=== PATIENT | male | born 1980 | race Caucasian/White ===

== ENCOUNTER 2019-12-06 17:44 | Observation (INO) | payer SELFPAY ==
[~2019-12-06] VITALS: Ht 177.8 cm; Wt 97.1 kg
[2019-12-06] MEDS ORDERED: SODIUM CHLORIDE 0.9% 1000ML 1,000 ML IV STA (17:54)
[2019-12-06] MEDS ORDERED: ASPIRIN 81 MG CHEW TAB PO ONE (18:00)
--- NOTE | 2019-12-06 18:00 | Emergency Department Note ---
History of Present Illnes History of Present Illness Chief Complaint: General Medicine Complaints History of Present Illness This is a 39 year old male brought by EMS for possible seizure/syncopal event. Per significant other, she found patient unconscious in his patio chair in the extreme heat with unknown time of AMS. Patient was arousable and per SO, he was making confusing statements regarding giving a tour of his house to a friend baldo t was not physically present. Seen at bedside AO x 1 . Historian: Patient, Compliance Program Manager/EMS Arrival Mode: [facility] Treatment MULTIPLE SCLEROSIS NURSE: IV Clinical Lab Technologist Required: No Onset (how long ago): hour(s) Radiation: Reports non-radiation (1) Severity: moderate Onset quality: sudden Duration (how long): hour(s) (1) Timing of current episode: constant Progression: partially resolved Chronicity: new Context: Denies recent illness, Denies recent surgery, Denies recent immobilization, Denies recent travel, Denies trauma/injury, Denies new medications, Denies hx of DVT/PE, Denies non-compliance w/ medications, Denies other Relieving factors: none Exacerbating factors: none Associated symptoms: Reports weakness Past Medical/Family History Physician Review I have reviewed the patient's past medical and family history. Any updates have been documented here. Past Medical History Recent Fever: No Clinical Suspicion of Infectio: No New/Unexplained Change in Ment: No Past Medical History: None Past Surgical History: None Social History Smoking Cessation: Never Smoker Alcohol Use: None Any Illegal Drug Use: No Other Any Pre-Existing Lines (PICC,: No Review of Systems ROS Narrative Unable to obtain ROS: altered mental status Physical Exam Related Data Allergies: Coded Allergies: No Known Allergies (Unverified , 12/06/19) Triage Vital Signs Vital Signs Date Time Temp Pulse Resp B/P (MAP) Pulse Ox O2 Delivery O2 Flow Rate FiO2 12/06/19 17:52 98.2 93 19 129/78 100 Room Air Vital signs reviewed: Yes Physical Exam CONSTITUTIONAL Constitutional: Present well-developed, Present well-nourished HENT HENT: Present normocephalic, Present atraumatic, Present oropharynx clear/m oist, Present nose normal, Present other (multiple lingular injury) HENT L/R: Present left ext ear normal, Present right ext ear normal EYES Eyes: Reports PERRL, Reports conjunctivae normal NECK Neck: Present ROM normal PULMONARY Pulmonary: Present effort normal, Present breath sounds normal CARDIOVASCULAR Cardiovascular: Present regular rhythm, Present heart sounds normal, Present capillary refill normal, Present normal rate GASTROINTESTINAL Abdominal: Present soft, Present nontender, Present bowel sounds normal GENITOURINARY Genitourinary: Present exam deferred SKIN Skin: Present warm, Present dry MUSCULOSKELETAL Musculoskeletal: Present ROM normal NEUROLOGICAL Neurological: Present alert, Present oriented x 3, Present no gross motor or sensory deficits PSYCHOLOGICAL Psychological: Present mood/affect normal, Present judgement normal Results Laboratory Lab results reviewed: Yes Laboratory comments Laboratory Tests Test 12/06/19 17:48 White Blood Count 24.93 x10e3/uL (4.8-10.8) Red Blood Count 4.91 x10e6/uL (4.3-5.7) Hemoglobin 14.3 g/dL (14.0-18.0) Hematocrit 44.6 % (38.2-49.6) Mean Corpuscular Volume 90.8 fL (81-99) Mean Corpuscular Hemoglobin 29.1 pg (28-32) Mean Corpuscular Hemoglobin Concent 32.1 g/dL (31-35) Red Cell Distribution Width 13.9 % (11.7-14.4) Platelet Count 273 x10e3/uL (140-360) Neutrophils (%) (Auto) 89.4 % (38.7-80.0) Lymphocytes (%) (Auto) 3.2 % (18.0-39.1) Monocytes (%) (Auto) 5.1 % (4.4-11.3) Eosinophils (%) (Auto) 0.0 % (0.0-6.0) Basophils (%) (Auto) 0.4 % (0.0-1.0) Neutrophils # (Auto) 22.3 (2.1-6.9) Lymphocytes # (Auto) 0.8 (1.0-3.2) Monocytes # (Auto) 1.3 (0.2-0.8) Eosinophils # (Auto) 0.0 (0.0-0.4) Basophils # (Auto) 0.1 (0.0-0.1) Absolute Immature Granulocyte (auto 0.48 x10e3/uL (0-0.1) Sodium Level 143 mmol/L (136-145) Potassium Level 4.8 mmol/L (3.5-5.1) Chloride Level 105 mmol/L (98-107) Carbon Dioxide Level 21 mmol/L (22-29) Anion Gap 21.8 mmol/L (8-16) Blood Urea Nitrogen 14 mg/dL (7-26) Creatinine 2.14 mg/dL (0.72-1.25) Estimat Glomerular Filtration Rate 34 ML/MIN (60-) BUN/Creatinine Ratio 7 (6-25) Glucose Level 116 mg/dL (74-118) Calcium Level 9.6 mg/dL (8.4-10.2) Total Bilirubin 0.4 mg/dL (0.2-1.2) Aspartate Amino Transf (AST/SGOT) 32 IU/L (5-34) Alanine Aminotransferase (ALT/SGPT) 46 IU/L (0-55) Alkaline Phosphatase 50 IU/L (40-150) Creatine Kinase 324 IU/L (30-200) Creatine Kinase MB 9.40 ng/mL (0-5.0) Troponin I 0.167 ng/mL (0-0.300) B-Type Natriuretic Peptide < 10.0 pg/mL (0-100) Total Protein 7.6 g/dL (6.5-8.1) Albumin 4.4 g/dL (3.5-5.0) Globulin 3.2 g/dL (2.3-3.5) Albumin/Globulin Ratio 1.4 (0.8-2.0) Imaging Imaging results reviewed: Yes Impressions [place] [address] Patient Name: ODELL MONCADA MR #: [id number] : 1980 Age/Sex: 39/M Req #: [id number] Adm Physician: Ordered by: BILLY CAMARA DO Report #: [id number] Location: ER Room/Bed: Procedure: [id number] DX/CHEST SINGLE (PORTABLE) Exam Date: 12/06/19 Exam Time: 1854 REPORT STATUS: Signed EXAMINATION: CHEST SINGLE (PORTABLE) INDICATION: Syncopal episode. COMPARISON: None FINDINGS: TUBES and LINES: None. LUNGS: Normal lung volumes. Lungs are clear. No consolidations. PLEURA: No pleural effusion or pneumothorax. HEART AND MEDIASTINUM: The cardiomediastinal silhouette is unremarkable. BONES AND SOFT TISSUES: There is a left sixth rib fracture deformity of indeterminate age.. Soft tissues are unremarkable. UPPER ABDOMEN: No free air under the diaphragm. IMPRESSION: 1. Left sixth rib fracture deformity of indeterminate age. Correlate with point tenderness. 2. Clear lungs. Signed by: Joslyn Marr MD on 12/06/2019 8:07 PM Dictated By: JOSLYN MARR MD 06 Transcribed By: JOSE on 12/06/192006 COPY TO: BILLY CAMARA DO~ [place] [address] Patient Name: ODELL MONCADA MR #: [id number] : 1980 Age/Sex: 39/M Req #: [id number] Adm Physician: Ordered by: BILLY CAMARA DO Report #: [id number] Location: ER Room/Bed: Procedure: [id number] CT/CT BRAIN WO Exam Date: Exam Time: REPORT STATUS: Signed Exam: Head CT without contrast History: Syncope Comparison studies: None Technique: Axial images were obtained from the skull base to the vertex. Coronal and sagittal images reconstructed from the axial data. Dose modulation, iterative reconstruction, and/or weight based adjustment of the mA/kV was utilized to reduce the radiation dose to as low as reasonably achievable. Radiation dose: Total DLP: 921.4 mGy*cm. Estimated effective dose: DLP x 0.015 Intravenous contrast: None Findings: Scalp: No abnormalities. Bones: No fractures, blastic or lytic lesions. Brain sulci: Appropriate for age. Ventricles: Normal in size and configuration. No hydrocephalus. Extra-axial spaces: No masses, no fluid collection. Parenchyma: No abnormal densities. No masses, acute hemorrhage, acute or chronic vascular insults. Sellar/suprasellar region: No abnormalities. Craniocervical junction: Patent foramen magnum. No Chiari one malformation. Included paranasal sinuses: Mild nonspecific mucosal thickening in the partially imaged maxillary sinuses. Remaining included sinuses are clear. Incidental findings: Nonspecific punctate calcifications along the posterior margins of the globes bilaterally. IMPRESSION: No acute intracranial abnormalities. Signed by: Dr. Marcie Bustamante M.D. on 12/06/2019 7:15 PM Dictated By: MARCIE BUSTAMANTE MD 14 Transcribed By: JOSE on 12/06/191914 COPY TO: BILLY CAMARA DO~ Procedures 12 Lead ECG Interpretation ECG Interpretation : ECG: ECG 1 Clinical Lab Technologist: Interpreted by ED physician Date: Dec 06, 2019 Time: 18:01 Prior ECG tracings: reviewed Rhythm: sinus rhythm Rate: normal BPM: 95 QRS axis: normal ST segments normal: Yes T waves normal: Yes Pacin% capture Clinical Impression: normal ECG Assessment & Plan Medical Decision Making MDM 39 yom evaluated for syncope. Diff Dx : PE, ACS, PTX, dehydration, shock, heat stroke, seizure, syncope, CVA Assessment & Plan Final Impression: (1) Seizure (2) Rhabdomyolysis Depart Disposition: ADMITTED Last Vital Signs Date Time Temp Pulse Resp B/P (MAP) Pulse Ox O2 Delivery O2 Flow Rate FiO2 12/06/19 17:52 98.2 93 19 129/78 100 Room Air Home Meds Reported Medications Lisinopril (LISINOPRIL) 10 Mg Tablet, 10 MG PO DAILY, #30 TAB 12/07/19 Medications in the ED Sodium Chloride 1,000 ml @ 0 mls/hr Q0M STAT IV ; Start 12/06/19 at 17:54; Stop 12/06/19 at 17:55 Aspirin 81 mg PRN ONCE PO ; Start 12/06/19 at 18:00; Stop 12/06/19 at 18:01; Status BILLY FERNANDES DO Dec 06, 2019 18:00
[2019-12-06 18:04] LABS: BASOPHILS # (AUTO) 0.1 (0.0-0.1); BASOPHILS % 0.4 % (0.0-1.0); HEMATOCRIT 44.6 % (38.2-49.6); HEMOGLOBIN 14.3 g/dL (14.0-18.0); LYMPHOCYTES # (AUTO) 0.8 (1.0-3.2); LYMPHOCYTES % 3.2 % (18.0-39.1); MEAN CORPUSCULAR HEMOGLOBIN 29.1 pg (28-32); MEAN CORPUSCULAR HGB CONC 32.1 g/dL (31-35); MEAN CORPUSCULAR VOLUME 90.8 fL (81-99); MONOCYTES # (AUTO) 1.3 (0.2-0.8); MONOCYTES % 5.1 % (4.4-11.3); NEUTROPHILS # (AUTO) 22.3 (2.1-6.9); NEUTROPHILS % 89.4 % (38.7-80.0); PLATELET COUNT 273 x10e3/uL (140-360); RED BLOOD COUNT 4.91 x10e6/uL (4.3-5.7); RED CELL DISTRIBUTION WIDTH 13.9 % (11.7-14.4)
[2019-12-06 18:18] LABS: ALBUMIN 4.4 g/dL (3.5-5.0); ALBUMIN/GLOBULIN RATIO 1.4 (0.8-2.0); ANION GAP 21.8 mmol/L (8-16); CALCIUM 9.6 mg/dL (8.4-10.2); CREATININE, SERUM 2.14 mg/dL (0.72-1.25); POTASSIUM 4.8 mmol/L (3.5-5.1)
--- NOTE | 2019-12-06 18:20 | NUR ---
[place] requested from pharmacy STAT
[2019-12-06 18:25] LABS: CREATINE KINASE MB 9.4 ng/mL (0-5.0)
[2019-12-06] MEDS: LEVETIRACETAM 500MG/5ML VIAL 500 MG in SODIUM CHLORIDE 0.9% 100 ML 100 ML IV SCH (18:28)
[2019-12-06] MEDS ORDERED: LEVETIRACETAM 500 MG/5 ML VIAL IV ONE (18:32)
[2019-12-06] MEDS ORDERED: SODIUM CHLORIDE 0.9% 50ML 50 ML ONE (18:33)
--- NOTE | 2019-12-06 19:19 | Diagnostic Imaging Report ---
Exam: Head CT without contrast History: Syncope Comparison studies: None Technique: Axial images were obtained from the skull base to the vertex. Coronal and sagittal images reconstructed from the axial data. Dose modulation, iterative reconstruction, and/or weight based adjustment of the mA/kV was utilized to reduce the radiation dose to as low as reasonably achievable. Radiation dose: Total DLP: 921.4 mGy*cm. Estimated effective dose: DLP x 0.015 Intravenous contrast: None Findings: Scalp: No abnormalities. Bones: No fractures, blastic or lytic lesions. Brain sulci: Appropriate for age. Ventricles: Normal in size and configuration. No hydrocephalus. Extra-axial spaces: No masses, no fluid collection. Parenchyma: No abnormal densities. No masses, acute hemorrhage, acute or chronic vascular insults. Sellar/suprasellar region: No abnormalities. Craniocervical junction: Patent foramen magnum. No Chiari one malformation. Included paranasal sinuses: Mild nonspecific mucosal thickening in the partially imaged maxillary sinuses. Remaining included sinuses are clear. Incidental findings: Nonspecific punctate calcifications along the posterior margins of the globes bilaterally. IMPRESSION: No acute intracranial abnormalities. Signed by: Dr. Uriel Bustamante M.D. on 12/06/2019 7:15 PM
--- NOTE | 2019-12-06 20:11 | Diagnostic Imaging Report ---
EXAMINATION: CHEST SINGLE (PORTABLE) INDICATION: Syncopal episode. COMPARISON: None FINDINGS: TUBES and LINES: None. LUNGS: Normal lung volumes. Lungs are clear. No consolidations. PLEURA: No pleural effusion or pneumothorax. HEART AND MEDIASTINUM: The cardiomediastinal silhouette is unremarkable. BONES AND SOFT TISSUES: There is a left sixth rib fracture deformity of indeterminate age.. Soft tissues are unremarkable. UPPER ABDOMEN: No free air under the diaphragm. IMPRESSION: 1. Left sixth rib fracture deformity of indeterminate age. Correlate with point tenderness. 2. Clear lungs. Signed by: Bill Contreras MD on 12/06/2019 8:07 PM
--- OUTSIDE RECORDS SUMMARY | 2019-12-06 21:08 | XMS REPORT | Continuity of Care Document ---
Author Author [facility] Organization [facility] Address [address] [place] [address] Dr. Howell [address] [place] [id number] Phone Unavailable Care Team Providers Care Physiognomist Name Role Phone BILLY CAMARA Unavailable Problems This patient has no known problems. Allergies, Adverse Reactions, Alerts This patient has no known allergies or adverse reactions. Medications This patient has no known medications. Procedures This patient has no known procedures. Results Test Description Test Time Test Comments Results Result Comments Source CHEST SINGLE (PORTABLE) 2019-12-06 20:05:[address] [address] Patient Name: ODELL MONCADA MR #: [id number] : 1980 Age/Sex: 39/M Req #: [id number] Adm Physician: Ordered by: BILLY CAMARA DO Report #: [id number] Location: ER Room/Bed: Procedure: [id number] DX/CHEST SINGLE (PORTABLE) Exam Date: 12/06/19 Exam Time: 1855 REPORT STATUS: Signed EXAMINATION: CHEST SINGLE (PORTABLE) INDICATION: Syncopal episode. COMPARISON: None FINDINGS: TUBES and LINES: None. LUNGS: Normal lung volumes. Lungs are clear. No consolidations. PLEURA: No pleural effusion or pne umothorax. HEART AND MEDIASTINUM: The cardiomediastinal silhouette is unremarkable. BONES AND SOFT TISSUES: There is a left sixth rib fracture deformity of indeterminate age.. Soft tissues are unremarkable. UPPER ABDOMEN: No free air under the diaphragm. IMPRESSION: 1. Left sixth rib fracture deformity of indeterminate age. Correlate with point tenderness. 2. Clear lungs. Signed by: Joslyn Marr MD on 12/06/2019 8:07 PM Dictated By: JOSLYN MARR MD 06 Transcribed By: JOSE on 12/06/192006 COPY TO: BILLY CAMARA DO CT BRAIN WO 2019-12-06 19:11:00 [place] [address] Patient Name: ODELL MONCADA MR #: [id number] : 1980 Age/Sex: 39/M Req #: [id number] Adm Physician: Ordered by: BILLY CAMARA DO Report #: [id number] Location: ER Room/Bed: Procedure: [id number] CT/CT BRAIN WO Exam Date: Exam Time: REPORT STATUS: Signed Exam: Head CT without contrast History: Syncope Comparison studies: None Technique: Axial images were obtained from the skull base to the vertex. Coronal and sagittal images reconstructed from the axial data. Dose modulation, iterative reconstruction, and/or weight based adjustment of the mA/kV was utilized to reduce the radiation dose to as low as reasonably achievable. Radiation dose: Total DLP: 921.4 mGy*cm. Estimated effective dose: DLP x 0.015 Intravenous contrast: None Findings: Scalp: No abnormalities. Bones: No fractures, blastic or lytic lesions. Brain sulci: Appropriate for age. Ventricles: Normal in size and configuration. No hydrocephalus. Extra-axial spaces: No masses, no fluid collection. Parenchyma: No abnormal densities. No masses, acute hemorrhage, acute or chronic vascular insults. Sellar/suprasellar region: No abnormalities. Craniocervical junction: Patent foramen magnum. No Chiari one malformation. Included paranasal sinuses: Mild nonspecific mucosal thickening in the partially imaged maxillary sinuses. Remaining included sinuses are clear. Incidental findings: Nonspecific punctate calcifications along the posterior margins of the globes bilaterally. IMPRESSION: No acute intracranial abnormalities. Signed by: Dr. Marcie Bustamante M.D. on 12/06/2019 7:15 PM Dictated By: MARCIE BUSTAMANTE MD 14 Transcribed By: JOSE on 12/06/191914 COPY TO: BILLY CAMARA DO
[2019-12-06 23:42] LABS: AMPHETAMINES SCREEN,URINE NEGATIVE (NEGATIVE); BENZODIAZEPINES SCREEN,URINE NEGATIVE (NEGATIVE); PHENCYCLIDINE SCREEN,URINE NEGATIVE (NEGATIVE)
--- NOTE | 2019-12-06 23:45 | NUR ---
Received pt from ER via stretcher. Pt alert, awake, and oriented x 3. Vitals stable. Denies any pain or discomfort. Oriented to bed and call light. Belongings and call light within reach. Will continue to monitor pt.
[2019-12-06 23:50] VITALS: BP 114/74
[2019-12-07] VITALS (9 sets, daily range): BP systolic 114–163; BP diastolic 74–98
[2019-12-07] MEDS: SODIUM CHLORIDE 0.9% 1000ML 1,000 ML IV SCH ×4 (00:07→21:02)
[2019-12-07 04:54] LABS: BASOPHILS % 0.2 % (0.0-1.0); EOSINOPHILS % 0.1 % (0.0-6.0); HEMATOCRIT 38.3 % (38.2-49.6); HEMOGLOBIN 12.4 g/dL (14.0-18.0); LYMPHOCYTES # (AUTO) 1.6 (1.0-3.2); LYMPHOCYTES % 10.5 % (18.0-39.1); MEAN CORPUSCULAR HEMOGLOBIN 29.8 pg (28-32); MEAN CORPUSCULAR HGB CONC 32.4 g/dL (31-35); MEAN CORPUSCULAR VOLUME 92.1 fL (81-99); MONOCYTES # (AUTO) 1.2 (0.2-0.8); NEUTROPHILS # (AUTO) 12.2 (2.1-6.9); NEUTROPHILS % 80.5 % (38.7-80.0); PLATELET COUNT 213 x10e3/uL (140-360); RED BLOOD COUNT 4.16 x10e6/uL (4.3-5.7); RED CELL DISTRIBUTION WIDTH 14.1 % (11.7-14.4)
[2019-12-07 05:17] LABS: CREATINE KINASE MB 6.6 ng/mL (0-5.0)
[2019-12-07 06:02] LABS: ALANINE AMINOTRANSFERASE 37 IU/L (0-55); ALBUMIN 3.7 g/dL (3.5-5.0); ALBUMIN/GLOBULIN RATIO 1.3 (0.8-2.0); ALKALINE PHOSPHATASE 45 IU/L (40-150); BLOOD UREA NITROGEN 17 mg/dL (7-26); BUN/CREATININE RATIO 15 (6-25); CALCIUM 8.8 mg/dL (8.4-10.2); CARBON DIOXIDE 21 mmol/L (22-29); CHLORIDE 108 mmol/L (98-107); CREATININE, SERUM 1.14 mg/dL (0.72-1.25); EST GLOMERULAR FILTRATION RATE > 60 ML/MIN (60-); GLUCOSE 100 mg/dL (74-118); SODIUM 142 mmol/L (136-145)
[2019-12-07] MEDS ORDERED: LISINOPRIL10 MG PO (06:08)
[2019-12-07] MEDS: LEVETIRACETAM 500MG/5ML VIAL 500 MG in SODIUM CHLORIDE 0.9% 100 ML 100 ML IV SCH (06:32)
[2019-12-07 11:30] LABS: CREATINE KINASE MB 5.9 ng/mL (0-5.0)
[2019-12-07 13:24] LABS: BILIRUBIN,URINE NEGATIVE (NEGATIVE); CLARITY,URINE CLEAR (CLEAR); COLOR,URINE YELLOW (YELLOW); KETONES,URINE NEGATIVE (NEGATIVE); LEUKOCYTE ESTERASE ,URINE NEGATIVE (NEGATIVE); NITRITE,URINE NEGATIVE (NEGATIVE); PROTEIN,URINE DIPSTICK NEGATIVE (NEGATIVE); URINE UROBILINOGEN 0.2 mg/dL (0.2 - 1)
[2019-12-07 13:33] LABS: EPITHELIAL CELLS,URINE FEW /LPF; MUCUS,URINE FEW (RARE); WBC,URINE (MAN) 0-5 /HPF (0-5)
[2019-12-07 13:44] LABS: CREATININE,URINE RANDOM 59.46 mg/dL (63-166); SODIUM,URINE 180 mmol/L
--- NOTE | 2019-12-07 14:05 | Consultation ---
DATE OF CONSULTATION: 12/07/2019 Neurology Consultation REASON FOR CONSULTATION: Seizure. HISTORY OF PRESENT ILLNESS: The patient was at home on , not drinking alcohol and then wakes up in an ambulance on the way to the hospital. He reported that he had a generalized tonic-clonic event and was brought to the emergency room by the ambulance, they finally called the EMS. The patient then had a seizure before. Denies head trauma. Denies alcohol. Denies tobacco. Denies family history of epilepsy. Denies previous similar events in the past of compression. Currently, he is feeling well. He does feel generally sore and is dysarthric from biting his tongue, but otherwise no acute complaints. No chest pain. No nausea, vomiting, visual changes, focal neurological deficits, etc. PHYSICAL EXAMINATION: VITAL SIGNS: He is afebrile. His blood pressure is /72. His heart rate is 87 and regular. HEENT: Extraocular muscles intact. Face symmetric and tongue is swollen. Speech is dysarthric. There is no nuchal rigidity. There are no bruises, lacerations or contusions on the head, knees, arms, or elbows. CARDIOVASCULAR: Regular rate and rhythm. PULMONARY: Clear to ascultation. ABDOMEN: Soft and nontender. EXTREMITIES: There is no ataxia on exam. Strength is 5/5. Reflexes are 2/4. Toes are downgoing bilaterally. ASSESSMENT AND PLAN: This man had a first-time seizure with a generalized tonic-clonic event of unclear etiology. Lab workup is in progress. An EEG has been ordered. The patient was started on Keppra IV and I am going to transitioned that p.o. I discussed driving restrictions with the patient, swimming restrictions with the patient and the need to get a followup with Neurology before he can be cleared for driving. ALEJANDRO CHANEY MD RR/MODL /[id number]
--- NOTE | 2019-12-07 16:50 | Consultation ---
DATE OF CONSULTATION: 12/07/2019 History predominantly from the patient. HISTORY OF PRESENT ILLNESS: This is a 39-year-old gentleman, who apparently was found by his girlfriend. Apparently has had a seizure. This is his first episode of seizure. He does not remember what happened before that. He does not remember what he was doing before he had a seizure episode. He did bite his tongue. Tongue is fairly swollen. He has difficulty eating and chewing. He does smoke marijuana, but sometimes he picks it up from smoke shop and sometimes elsewhere, but denies any other substance abuse. LABORATORY DATA: Show elevated white count 24,000 yesterday and then today it is 15, with initial hemoglobin 14.3, now 12.4. Has a platelet count of 213. Chemistry, sodium 142, potassium 4, bicarb 21, creatinine was 2.14 with initial bicarbonate of 21. His CK was 324. No CK done today. Blood sugars are in the 100s. Liver function enzymes are normal. Total protein 6.5 with albumin 3.7. ALLERGIES: HE DENIES ANY DRUG ALLERGIES. Has history of hypertension, takes lisinopril. SOCIAL HISTORY: The patient does not work. CURRENT MEDICATIONS: On normal saline at 125 mL an hour. Did receive an aspirin bolus. Also on Keppra 500 mg b.i.d. as well as aspirin. FAMILY HISTORY: Significant for hypertension. PHYSICAL EXAMINATION: GENERAL: The patient otherwise awake, alert, lying supine, has obviously swollen tongue, which appears fairly sore. VITAL SIGNS: Blood pressure 138/90, pulse rate 67, afebrile, oxygen saturation 99%. HEAD AND NECK: Cornea clear. Oral mucosa limited exam. Tongue fairly swollen. Neck veins flat. LUNGS: Relatively clear. HEART: S1 and S2 audible. ABDOMEN: Soft and nontender. EXTREMITIES: No apparent visceromegaly and lower extremity examination shows no edema. CT brain negative. Urine myoglobin was canceled. Urinalysis not done. I am going to get one done. Had a urine drug screen, apparently negative for opioids, methadone, barbiturates, phencyclidine, nifedipine, methamphetamine, benzos, cocaine, and cannabinoids. Coronavirus test is pending. IMPRESSION AND PLAN: Acute kidney injury in a patient with new onset seizures of unclear etiology. Neurology on consult. The patient denies any taking any illicit medication. Does not have diabetes. No blood sugar issues. We will obtain CK today. Urine chemistries, urinalysis. Continue with IV normal saline. Consult Dr. Boyce of ENT. Please see orders. MD HARJIT Wallace/MODL /[id number]
[2019-12-07] MEDS: LEVETIRACETAM 500 MG TAB PO SCH (17:19)
--- NOTE | 2019-12-07 18:20 | Diagnostic Imaging Report ---
EXAM: Renal Ultrasound INDICATION: Rhabdomyolysis and seizure. COMPARISON: None TECHNIQUE: Transverse and longitudinal images of the kidneys and bladder were obtained. FINDINGS: Right Kidney: Size: 10.7 x 4.8 x 5.6 cm Echogenicity: Normal Parenchymal thickness: Normal Collecting system: No hydronephrosis Stones: None Cyst/Mass: None Left Kidney: Size: 12.8 x 5.5 x 5.6 cm Echogenicity: Normal Parenchymal thickness: Normal Collecting system: No hydronephrosis Stones: None Cyst/Mass: None Bladder: The urinary bladder is unremarkable with prevoid volume of 317.55. Urinary jets were not visualized. The prostate was unremarkable. IMPRESSION: Normal renal ultrasound exam. Signed by: Bill Contreras MD on 12/07/2019 6:17 PM
--- NOTE | 2019-12-07 20:06 | Consultation ---
DATE OF CONSULTATION: 12/07/2019 Cardiology consultation REQUESTING PHYSICIAN: Indira Bangura MD. REASON FOR CONSULTATION: Syncope. HISTORY OF PRESENT ILLNESS: This is a 39-year-old male with history of hypertension and hyperlipidemia, who presents with complaints of syncope. The patient reports he had been sitting on the patio when he lost consciousness. He denies any preceding chest pain, shortness of breath, palpitations, or lightheadedness. He denies any bowel or bladder incontinence, but does report biting his tongue. The initial event was unwitnessed, but he was found to be unconscious in the chair by his fiancee. He denies any edema, orthopnea, or PND. REVIEW OF SYSTEMS: Negative except as per HPI. PAST MEDICAL HISTORY: 1. Hypertension. 2. Hyperlipidemia. PAST SURGICAL HISTORY: Denies. ALLERGIES: PLEASE SEE EMR. MEDICATIONS: Please see medication list. SOCIAL HISTORY: No tobacco, alcohol, or illicit drugs. FAMILY HISTORY: Denies. PHYSICAL EXAMINATION: VITAL SIGNS: Temperature 98.9 degrees, pulse 67, respiratory rate 18, blood pressure 138/90, and oxygen saturation 99% on room air. GENERAL: A well-developed, well-nourished man, in no acute distress. HEENT: Normocephalic, atraumatic. Pupils are equal. No scleral icterus. NECK: Supple. No thyromegaly. No cervical lymphadenopathy. No carotid bruits. LUNGS: Clear to auscultation bilaterally. No wheezes or crackles. CARDIOVASCULAR: Normal rate. Regular rhythm. No murmur. Normal S1, S2. ABDOMEN: Soft, nontender. EXTREMITIES: No edema. NEUROLOGIC: Nonfocal exam. LABORATORY DATA: WBC 15.07, hemoglobin 12.4, hematocrit 38.3, and platelets 213. Sodium 142, potassium 4, chloride 108, CO2 of 21, BUN 17, and creatinine 1.14. CK 434, troponin 0.038. TSH 0.265. IMAGING DATA: EKG, normal sinus rhythm, incomplete right bundle-branch block, septal infarct age undetermined. IMPRESSION: 1. Syncope. 2. Hypertension. 3. Hyperlipidemia. RECOMMENDATIONS: No evidence of myocardial infarction on serial cardiac biomarkers. Monitor the patient on telemetry for arrhythmia. Obtain echocardiogram and carotid Doppler. Further recommendations pending test results. Neurology has been consulted to evaluate for seizure. Thank you for this consult. We will continue to follow. MD JULISA Harkins/TABITHA /[id number]
[2019-12-07] MEDS: DEXAMETHASONE SOD PHOS 10 MG/1 ML VIAL IV SCH (21:02)
--- NOTE | 2019-12-08 01:42 | Consultation ---
DATE OF CONSULTATION: 12/07/2019 HISTORY OF PRESENT ILLNESS: I was kindly asked to see this 39-year-old man, known to me from outpatient evaluation and treatment for evaluation of "swollen tongue." The patient suffered a swollen tongue after having a seizure. He is having difficulty with speech and difficulty with swallowing. His history of present illness, past medical history, and past surgical history were all reviewed in detail in the chart. PHYSICAL EXAMINATION: HEENT: The tongue is traumatized in the lateral aspect and anterior aspect with significant edema. There is no impending upper airway obstruction. There are no lacerations noted, just generalized hematoma of the anterior tongue. There is no palpable cervical adenopathy. ASSESSMENT: Tongue trauma without laceration. PLAN: 1. Peridex 5 mL q.6 hours while awake for 3 days. 2. Decadron 10 mg IV push for 2-3 q.8 hours for two doses. Lico Greene MD LRAdan/MODL /[id number]
[2019-12-08] MEDS: SODIUM CHLORIDE 0.9% 1000ML 1,000 ML IV SCH (04:49)
[2019-12-08] MEDS: CHLORHEXIDINE GLUCONATE 0.12% SOLN 473 ML BTL MT SCH ×2 (05:08→11:49)
[2019-12-08] MEDS: DEXAMETHASONE SOD PHOS 10 MG/1 ML VIAL IV SCH (05:08)
[2019-12-08 05:13] VITALS: BP 141/99
[2019-12-08 06:58] LABS: ALANINE AMINOTRANSFERASE 41 IU/L (0-55); ALBUMIN 4.5 g/dL (3.5-5.0); ALBUMIN/GLOBULIN RATIO 1.2 (0.8-2.0); ALKALINE PHOSPHATASE 62 IU/L (40-150); ANION GAP 19.4 mmol/L (8-16); BLOOD UREA NITROGEN 20 mg/dL (7-26); BUN/CREATININE RATIO 21 (6-25); CALCIUM 10.2 mg/dL (8.4-10.2); CARBON DIOXIDE 21 mmol/L (22-29); CHLORIDE 104 mmol/L (98-107); CREATINE KINASE 346 IU/L (30-200); CREATININE, SERUM 0.97 mg/dL (0.72-1.25); EST GLOMERULAR FILTRATION RATE > 60 ML/MIN (60-); GLUCOSE 145 mg/dL (74-118); POTASSIUM 4.4 mmol/L (3.5-5.1); SODIUM 140 mmol/L (136-145)
[2019-12-08 07:32] LABS: HEMATOCRIT 44.5 % (38.2-49.6); HEMOGLOBIN 14.3 g/dL (14.0-18.0); MEAN CORPUSCULAR HEMOGLOBIN 29.1 pg (28-32); MEAN CORPUSCULAR HGB CONC 32.1 g/dL (31-35); MEAN CORPUSCULAR VOLUME 90.4 fL (81-99); PLATELET COUNT 266 x10e3/uL (140-360); RED BLOOD COUNT 4.92 x10e6/uL (4.3-5.7); RED CELL DISTRIBUTION WIDTH 13.6 % (11.7-14.4)
[2019-12-08 07:43] VITALS: BP 140/97
[2019-12-08 08:21] VITALS: BP 140/97
[2019-12-08] MEDS: LEVETIRACETAM 500 MG TAB PO SCH (09:07)
--- NOTE | 2019-12-08 09:46 | NUR ---
GAVE PACKET OF INFORMATION WITH [facility] [employer] FOR ASSISTANCE WITH LOW TO NO INCOME TO PATIENT. RESOURCES THAT PATIENT MAY BE ABLE TO FOLLOW UP UPON DISCHARGE. PT EDUCATED ON EACH RESOURCE AND UNDERSTANDING HOW TO FOLLOW UP TO SEE IF QUALIFIED FOR EACH RESOURCE.
--- NOTE | 2019-12-08 09:50 | Discharge Summary ---
HISTORY: Mr. Lopez is a 39-year-old man with history of hypertension, hyperlipidemia, came to the emergency room after having a syncopal episode. Apparently, he had a seizure. He bit his tongue. He was seen by ENT, who ordered some steroids. Seen by neurologist, EEG is pending. Also seen by corner former, who ordered an echocardiogram and a carotid Doppler, that came back negative. PHYSICAL EXAMINATION: GENERAL: He is awake and alert. He wants to go home. VITAL SIGNS: Temperature is 98.7, blood pressure 140/97. HEART: Regular rate. LUNGS: Clear to auscultation. ABDOMEN: Soft. LABORATORY DATA: On the blood work; white count 11.79, hemoglobin 14.3, hematocrit 44.5. Potassium 4.4, creatinine is 0.97, glucose 145. CPK is going down. Serology with coronavirus still pending. DISCHARGE DIAGNOSES: 1. Syncopal episode. 2. Probably seizure disorder. 3. Hypertension. 4. Hyperlipidemia. PLAN: At the present time, if the patient gets cleared by neurologist or corner former, he can be discharged home. Renal function is back to normal. CPK is going down. As per neurologist, he needs to be on Keppra 500 mg twice a day. Please see home medication reconciliation list. All this was discussed with the patient. All questions were answered to satisfaction. He needs to follow up with his PCP in 1 week and like I said before, discharge him home if it is okay with consultants. MD KRISTINE Kline/TABITHA /[id number]
--- NOTE | 2019-12-08 10:00 | Discharge Summary ---
HISTORY: Mr. Lopez is a 39-year-old man with history of hypertension and hyperlipidemia, who apparently was outside. He had a syncopal episode. Nobody was apparently there, so he does not know what happened. He bit his tongue and has been seen both by ENT for that, who ordered some Decadron. He was also seen by neurologist. We are awaiting for EEG results. He is on Keppra 500 mg twice a day. He was also seen by hoop punch and coiler operator helper, serial cardiac enzymes were negative, so we are awaiting for echocardiogram and carotid Doppler results. PHYSICAL EXAMINATION: GENERAL: Today, he is awake and alert. He wants to go home. VITAL SIGNS: Temperature is 98.7, blood pressure 140/97. HEART: Regular rate. LUNGS: Clear to auscultation. ABDOMEN: Soft. LABORATORY DATA: On the blood work; white count 11.76, hemoglobin 14.3, hematocrit 44.5. Potassium 4.4, creatinine is 0.97. CK went down to 346. COVID test is still pending. Echocardiogram has an ejection fraction of 65%. Trace TR. No significant stenosis of the carotid arteries. DISCHARGE DIAGNOSES: 1. Syncopal episode, probably due to seizure. 2. Hypertension. 3. Hyperlipidemia. PLAN: At the present time is to discharge the patient home if okay with hoop punch and coiler operator helper and neurologist. Kidney function is back to normal. CPK is going down. So, if he gets cleared by neurologist and hoop punch and coiler operator helper, he is going to be able to go home and follow up as an outpatient. As per the neurologist, he needs to be on Keppra 500 mg twice a day. All this was discussed in extension with the patient. All questions were answered to satisfaction. Please see home medication reconciliation list. MD KRISTINE Kline/TABITHA /[id number]
--- NOTE | 2019-12-08 11:20 | Progress Note ---
DATE: 12/08/2019 Cardiology Progress Note SUBJECTIVE: The patient denies chest pain or shortness of breath. OBJECTIVE: VITAL SIGNS: Temperature 98.7 degrees, pulse 80, respiratory rate 18, blood pressure 140/97, and oxygen saturation 99% on room air. GENERAL: Awake, alert, no acute distress. LUNGS: Clear to auscultation bilaterally. No wheezes or crackles. CARDIOVASCULAR: Normal rate. Regular rhythm. No murmur. Normal S1, S2. ABDOMEN: Soft, nontender. EXTREMITIES: No edema. CARDIAC MEDICATIONS: None. LABORATORY DATA: WBC 11.79, hemoglobin 14.3, hematocrit 44.5, and platelets 266. Sodium 140, potassium 4.4, chloride 104, CO2 of 21, BUN 20, and creatinine 0.97. TELEMETRY: Telemetry was personally reviewed and interpreted, revealing normal sinus rhythm. IMPRESSION: 1. Seizure. 2. Hypertension. 3. Hyperlipidemia. RECOMMENDATIONS: No evidence of myocardial infarction on serial cardiac biomarkers. No evidence of arrhythmia on telemetry to explain his presentation which was more consistent with seizure rather than syncope. Carotid Doppler did not reveal hemodynamically significant stenosis. We will review echocardiogram images once available. Management of seizure per Neurology. Please have the patient follow up in the office in 2 weeks. Thank you for this consult. We will continue to follow. Ina Benjamin MD ABS/MODL /[id number]
[2019-12-08 11:38] VITALS: BP 151/101
--- NOTE | 2019-12-08 13:58 | NUR ---
eeg 30 min study awake and asleep [id number] 10/20 international electrode placement system read in bipolar and transverse montage EEG data theta -alpha rythm prominance 5-8 hz high amplitude and sinusoidal - V- vaves and sleep spindles Intermittent slower waves EEG report: abnormal I background slow patient shows prominent and early sleep, as well as a diffuse slow background suggesting mild encephalopathy. no evidence of seizure captured but repeat eeg warranted as outpt t
--- NOTE | 2019-12-08 13:59 | NUR ---
no acute complaints no recurrence 98.7 92 18 140/97 aox3 eomi, perrl mild dysarthria rrr cta abd soft no myotonia motor 5/5 reflexes 1/4 sensory grossly intact no ataxia or tremors A/P syncopal convulsion vs sz initial EEG normal, however given dramatic nature of this event initaiting aed is warranted x 3 mo and driving restrcitions until cleared discussed w/ pt ok to dc
[2019-12-08] MEDS ORDERED: KEPPRA500 MG PO (14:23)
[2019-12-08 15:16] VITALS: BP 141/80
--- NOTE | 2019-12-08 15:30 | NUR ---
Pt discharged home at this time. Pt is aox3 and able to verbalize needs. Denies any pain at time of discharge. Pt verbalized understanding of all discharge instructions and follow up appointments. Breaths are even and unlabored on room air.
== END 2019-12-08 15:30 | disposition home or self-care (01) ==
LOC: ER 18:14 → ERHOLD 21:05 → MED/SURG3 23:07
PROVIDERS: ADMIT Internal Medicine; ATTEND Internal Medicine
DX: G40.89 Other seizures (principal); I10 Essential (primary) hypertension; E78.5 Hyperlipidemia, unspecified; Z11.59 Encounter for screening for other viral diseases; N17.9 Acute kidney failure, unspecified; S00.532A Contusion of oral cavity, initial encounter
CPT/HCPCS: 36415 ×3; 70450; 71045; 76770; 80053 ×3; 80307; 81001; 82550 ×3; 82553 ×2; 82570; 83874; 83880; 84146; 84300; 84443; 84484 ×2; 84550; 85007; 85025 ×2; 85027; 87086; 93005; 93306; 93880; 95812; 99284; G0378 ×3; J1100 ×2; J1953 ×2; J7030 ×2; U0002